=== PATIENT | male | born 1965 | race Caucasian/White ===

== ENCOUNTER → 2017-08-11 | Outpatient (CLI) | payer BC ==
--- NOTE | 2017-08-11 16:02 | Diagnostic Imaging Report ---
EXAMINATION: Magnetic resonance imaging of the right knee without intravenous contrast DATE: August 11, 2017. COMPARISON: None. INDICATION: 52-year-old male, right knee pain. History of chondromalacia patella. TECHNIQUE: Multiplanar, multisequence non contrast enhanced MR imaging was accomplished. FINDINGS: MENISCI: There is an oblique tear involving the anterior horn, body, posterior horn, and posterior root attachment of the medial meniscus with approximately 4 mm medial meniscal extrusion. There is a longitudinal horizontal tear involving the anterior horn and body of the lateral meniscus. LIGAMENTS AND TENDONS: The anterior and posterior cruciate ligaments are intact. The medial collateral ligament is intact. The iliotibial band, mid third lateral capsular ligament, fibular collateral ligament, biceps femoris tendon and conjoined tendon are intact. The quadriceps tendon and patella ligament are intact. JOINT: There are multiple fissures of the cartilage of the median patellar ridge and medial patellar facet which appear full thickness or very near full thickness. There is approximately 25% thinning of the cartilage of the median patellar ridge and medial patellar facet. There is a full-thickness cartilage fissure with flap morphology involving the central aspect of the femoral trochlear cartilage with cartilage flap measuring approximately 4 mm in transverse dimension as measured on axial T2 fat-saturation sequence image 11. There are additional areas of irregularity of the cartilage of the lateral femoral trochlea. The medial and lateral compartment cartilage demonstrates minimal irregularity. There is a trace knee joint effusion without intra-articular body or prominent synovitis. BONE: There is no acute fracture, bone contusion, or evidence of osteonecrosis. There is a benign subchondral cyst in the lateral tibial plateau with adjacent edema-like signal which is likely degenerative related or mechanically related. This is near the tibial attachment site at the anterior cruciate ligament. There is no acute fracture. There is no evidence of osteonecrosis. BURSAE AND SOFT TISSUES: There is no Boyer's cyst. There is nonspecific mild medial subcutaneous edema. IMPRESSION: 1. Oblique tear involving the entire medial meniscus with 4 mm medial meniscal extrusion. 2. Longitudinal horizontal-type tear involving the anterior horn and body of the lateral meniscus. 3. Intact anterior and posterior cruciate ligaments. 4. 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 No knee joint effusion, prominent synovitis, or intra-articular body. 5. No acute fracture, bone contusion, or evidence of osteonecrosis. Dictated by: Dictated on workstation # [id number]
== END ==
LOC: RAD 13:05
PROVIDERS: ATTEND Orthopaedic Surgery
DX: S83.241A Other tear of medial meniscus, current injury, right knee, initial encounter (principal); S83.281A Other tear of lateral meniscus, current injury, right knee, initial encounter; M17.11 Unilateral primary osteoarthritis, right knee; M22.41 Chondromalacia patellae, right knee
CPT/HCPCS: 73721

== ENCOUNTER → 2019-12-31 | Outpatient (CLI) | payer BC ==
[~2019-12-31] VITALS: Ht 170 cm; Wt 98.0 kg
[~2019-12-31] MED LIST: CATHETER FLUSH 10 ML SYR IV PRN
[2019-12-31 09:12] VITALS: BP 135/89
--- NOTE | 2020-01-03 19:28 | STRESS TEST ---
DATE OF SERVICE: 12/31/2019 RESTING AND POST EXERCISE TECHNETIUM-99M TETROFOSMIN SPECT CT IMAGING PRIMARY PHYSICIAN: Dr. Escalante. CLINICAL DIAGNOSIS: Shortness of breath, hypertension, hyperlipidemia. Baseline images were carried out after injection of 10.71 mCi of technetium-99m Tetrofosmin. Subsequently, exercise was carried out on a treadmill. Carlos protocol was employed. After the patient had attained 85% of maximum predicted heart rate, 31.1 mCi of technetium-99m Tetrofosmin were injected and the exercise was continued for another minute. The test was stopped on account of fatigue. There did not appear to be significant ST segment deviation with exercise. Heart rate response to exercise was normal. Blood pressure response to exercise was somewhat hypertensive. Review of images at rest and following stress does not indicate significant perfusion defects consistent with significant myocardial ischemia or infarction. Gated images show well preserved global left ventricular systolic function and the left ventricular ejection fraction is calculated to be 62%. Left ventricular end diastolic volume is 126 mL. TID is absent (0.92). CONCLUSIONS: 1. No evidence of significant myocardial ischemia or infarction on this study. 2. Well preserved global left ventricular systolic function without any distinctive regional wall motion abnormality with left ventricular ejection fraction of 62%. 3. Moderate cardiomegaly is suggested on this study. Job ID: [id number] DocumentID: [id number] Dictated Date: 01/03/2020 12:55:27 Tree Tapping Laborer Date: 01/03/2020 19:27:24 Dictated By: GERTRUDIS ESCALANTE MD, MA, FACP, FACC,
== END ==
LOC: CARD 08:00
PROVIDERS: ATTEND Internal Medicine Cardiovascular Disease
DX: I10 Essential (primary) hypertension (principal); E78.5 Hyperlipidemia, unspecified; R01.1 Cardiac murmur, unspecified; R06.02 Shortness of breath
CPT/HCPCS: 78452; 93017; A9502

== ENCOUNTER → 2020-01-03 | Outpatient (CLI) | payer BC | LOC: CARD 14:49 | PROVIDERS: ATTEND Internal Medicine Cardiovascular Disease | DX: I10 Essential (primary) hypertension (principal); I34.0 Nonrheumatic mitral (valve) insufficiency; I51.7 Cardiomegaly; E78.49 Other hyperlipidemia | CPT/HCPCS: 93306 ==

== ENCOUNTER 2020-12-06 18:11 | Emergency (ER) | payer BC ==
[~2020-12-06] VITALS: Ht 170.2 cm; Wt 96.6 kg
--- OUTSIDE RECORDS SUMMARY | 2020-12-06 18:17 | XMS REPORT | CCD ---
Author Author Ivan Wong Organization Adore Todd MD, [facility] Address [address] [place] [address] Phone Care Team Providers Care Home Care Music Therapist Name Role Phone Adore Todd PP Unavailable CCM Unavailable Summary Purpose Interface Exchange Insurance Providers Payer name Policy type / Coverage type Covered republican ID Effective Begin Date Effective End Date [facility] Commercial Insurance [id number] Unknown Unknown Family history Father Diagnosis Age At Onset Hypertension Unknown Mother Diagnosis Age At Onset No Known Diseases N/A Social History Social History Element Codes Description Effective Dates Marital status Unknown Kimberlee 10/26/2019 Number of children Unknown 2 10/26/2019 Employment Unknown Currently employed Professor at [employer] 10/26/[address]: 168134814 Currently uses smokeless to bacco 10/26/[address]: 502941 Currently drinks alcohol 10/25 Frequency of drinks SNOMED CT: 636901261 10 drinks per week 10/02 Allergies, Adverse Reactions, Alerts Substance Reaction Codes Entered Date Inactivated Date Status * NO KNOWN DRUG ALLERGIES Unknown 10/26/2019 No Inactiv e Date Active Problems Condition Codes Effective Dates Condition Status Prostate cancer screening ICD-10: Z12.5 ICD-9: V76.44 10/26/2019 Active Well adult exam ICD-10: Z00.00 ICD-9: V70.0 10/26/2019 Active Hypertension Unknown 10/26/2019 Active Essential (primary) hypertension ICD-10: I10 ICD-9: 401.9 10/26/2019 Active Heart murmur ICD-10: r01.1 ICD-9: 785.2 10/26/2019 Active Medications Medication Codes Instructions Start Date Stop Date Status Fill Instructions losartan 50 mg tablet RxNorm: 959320 1 Tablet(s) Oral two times a day 11/13/2020 11/07/2021 Active losartan 50 mg tablet RxNorm: 837384 1 Tablet(s) Oral two times a day 11/10/2019 11/04/2020 Inactive losartan 50 mg tablet RxNorm: 141539 1 Tablet(s) Oral two times a day 10/26/2019 11/09/2019 Inactive Medication Administered No Medication Administered data Immunizations No Immunization data Results Observation Observation Code Item Item Code Result Date S ervice Location Ref Lab Testing [id number] Ref Specimens enriquez ve been submitted to [facility] for analysis in accordance with the patient's insurance policy. If you do not receive results in a timely manner, please contact [facility] directly at [phone]. 10/28/2019 Unknown Procedures No Procedures data Vital Signs Date Vital 11/13/2020 Blood Pressure 1: 132/76 Code: 8480-6 BMI: 34.5 Code: 08181-7 Heart Rate 1: 70 bpm Height: 5'7" Code: 8302-2 SpO2: 96% Temperature: 3 6.0 (C) / 96.8 (F) Weight: 220 lbs Code: 57256-8 10/26/2019 Blood Pressure 1: 142/84 Code: 8480-6 BMI: 34.5 Code: 24476-9 Heart Rate 1: 68 bpm Height: 5'7" Code: 8302-2 SpO2: 97% Temperature: 3 6.9 (C) / 98.4 (F) Weight: 220 lbs Code: 65236-5 Functional Status No Functional Status data Reason For Visit Reason For Visit Effective Dates Notes well man exam (40-65 years) 11/13/2020 hypertension 10/26/2019 Encounters Encounter Performer Location Codes Date (78701) PREV VISIT EST AGE 40-64 Diagnosis: Well adult exam[ICD10: Z00.00] Diagnosis: Prostate cancer screening[ICD10: Z12.5] [facility] CPT-4: 53503 11/13/2020 OFFICE VISIT, NEW - LEVEL 3 Diagnosis: Essential (primary) hypertension[ICD10: I10] Diagnosis: Heart murmur[ICD10: r01.1] Diagnosis: Well adult exam[ICD10: Z00.00] Diagnosis: Prostate cancer screening[ICD10: Z12.5] [facility] CPT-4: 68757 10/26/2019 Plan of Care Planned Activity Notes Codes Status Date Visit Plan: Well Adult - pt was counsele d about diet, exercise, and encouraged to follow a heart healthy diet and increase activity level. The patient was instructed to RTC yearly for well adult exams and PRN for acute illnesses. The pt was also instructed to have yearly labs for check of cholesterol, thyroid, chem panel, CBC, and renal functioning. Hypertension - well controlled - continue with current medications, continue with no added salt diet. Pt has been encouraged to exercise daily. The pt has been advised to call the office if there are any acute concerns about change in blood pressure readings at home. 11/13/2020 Patient Education: Patient Medication Summary Completed 11/13/2020 Care Plan: Cbc With Differential Pending 11/13/2020 Care Plan: Comp Metabolic Pending Care Plan: Lipid Pending 11/13/2020 Care Plan: Tsh Pending 11/13/2020 Care Plan: Total Psa Pending 021 Visit Plan: Hypertension - well controll ed - continue with current medications, continue with no added salt diet. Pt has been encouraged to exercise daily. The pt has been advised to call the office if there are any acute concerns about change in blood pressure readings at home. Heart murmur- schedule echocardiogram Fasting labs 10/26/2019 Patient Education: Patient Medication Summary Completed 10/26/2019 Patient Education: Hypertension Completed 10/26/2019 Care Plan: Cbc With Differential Pending 10/26/2019 Care Plan: Comp Metabolic Pending Care Plan: Tsh Pending 10/26/2019 Care Plan: Total Psa Pending 020 Care Plan: Lipid Pending 10/26/2019 Instructions Comment . Well Adult - pt was counseled about di et, exercise, and encouraged to follow a heart healthy diet and increase activity level. The patient was instructed to RTC yearly for well adult exams and PRN for acute illnesses. The pt was also instructed to have yearly labs for check of cholesterol, thyroid, chem panel, CBC, and renal functioning. Hypertension - well controlled - continue with current medications, continue with no added salt diet. Pt has been encouraged to exercise daily. The pt has been advised to call the office if there are any acute concerns about change in blood pressure readings at home. . Hypertension - well controlled - melina nue with current medications, continue with no added salt diet. Pt has been encouraged to exercise daily. The pt has been advised to call the office if there are any acute concerns about change in blood pressure readings at home. Heart murmur- schedule echocardiogram Fasting labs Medical Equipment No Medical Equipment data Health Concerns Section Health Concerns data not found Goals Section Goals data not found Interventions Section Interventions data not found Health Status Evaluations/Outcomes Section Health Status Evaluations/Outcomes data not found Advance Directives No Advance Directive data
--- OUTSIDE RECORDS SUMMARY | 2020-12-06 18:17 | XMS REPORT | CCD ---
Author Author Ivan Wong Organization Adore Todd MD, [facility] Address [address] [place] [address] Phone Care Team Providers Care Quality Manager Name Role Phone [facility] PP Unavailable CCM Unavailable Summary Purpose Interface Exchange Insurance Providers Payer name Policy type / Coverage type Covered republican ID Effective Begin Date Effective End Date [facility] Commercial Insurance [id number] Unknown Unknown Family history Father Diagnosis Age At Onset Hypertension Unknown Mother Diagnosis Age At Onset No Known Diseases N/A Social History Social History Element Codes Description Effective Dates Marital status Unknown Kimberlee 10/26/2019 Number of children Unknown 2 10/26/2019 Employment Unknown Currently employed Professor at [employer] 10/26/[address]: 205193245 Currently uses smokeless to bacco 10/26/[address]: 657385 Currently drinks alcohol 10/25 Frequency of drinks SNOMED CT: 120608115 10 drinks per week 10/02 Allergies, Adverse [...] Fill Instructions losartan 50 mg tablet RxNorm: 835650 1 Tablet(s) Oral two times a day 11/13/2020 11/07/2021 Active losartan 50 mg tablet RxNorm: 669204 1 Tablet(s) Oral two times a day 11/10/2019 11/04/2020 Inactive losartan 50 mg tablet RxNorm: 559781 1 Tablet(s) Oral two times a day 10/26/2019 11/09/2019 Inactive Medication Administered No Medication Administered data Immunizations No Immunization data Results Observation Observation Code Item Item Code Result Date S ervice Location Ref Lab Testing [id number] Ref Specimens enriquez ve been submitted to [facility] for analysis in accordance with the patient's insurance policy. If you do not receive results in a timely manner, please contact [facility] directly at [phone]. 10/28/2019 Unknown Procedures No Procedures data Vital Signs Date Vital 11/13/2020 Blood Pressure 1: 132/76 Code: 8480-6 BMI: 34.5 Code: 27673-0 Heart Rate 1: 70 bpm Height: 5'7" Code: 8302-2 SpO2: 96% Temperature: 3 6.0 (C) / 96.8 (F) Weight: 220 lbs Code: 99958-8 10/26/2019 Blood Pressure 1: 142/84 Code: 8480-6 BMI: 34.5 Code: 28774-3 Heart Rate 1: 68 bpm Height: 5'7" Code: 8302-2 SpO2: 97% Temperature: 3 6.9 (C) / 98.4 (F) Weight: 220 lbs Code: 27829-1 Functional Status No Functional Status data Reason For Visit Reason For Visit Effective Dates Notes well man exam (40-65 years) 11/13/2020 hypertension 10/26/2019 Encounters Encounter Performer Location Codes Date (69001) PREV VISIT EST AGE 40-64 Diagnosis: Well adult exam[ICD10: Z00.00] Diagnosis: Prostate cancer screening[ICD10: Z12.5] [facility] CPT-4: 95029 11/13/2020 OFFICE VISIT, NEW - LEVEL 3 Diagnosis: Essential (primary) hypertension[ICD10: I10] Diagnosis: Heart murmur[ICD10: r01.1] Diagnosis: Well adult exam[ICD10: Z00.00] Diagnosis: Prostate cancer screening[ICD10: Z12.5] [facility] CPT-4: 86286 10/26/2019 Plan of Care Planned Activity Notes [...] in blood pressure readings at home. 11/13/2020 Appointment: [facility] Wong WPtel: [phone] (15 min) Moderate 11/13/2020 Patient Education: Patient Medication Summary Completed [...]
[2020-12-06] MEDS ORDERED: L.E.T. SOLUTION 3 ML SYR ONE (18:43)
[2020-12-06] MEDS ORDERED: L.E.T. SOLUTION 3 ML SYR TOP ONE (18:45)
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
[2020-12-06] MEDS ORDERED: LIDOCAINE 1% INJ 20 ML 20 ML VIAL ONE (19:21)
[2020-12-06] MEDS ORDERED: LIDOCAINE 1% INJ 20 ML 20 ML VIAL INJ ONE (19:30)
[2020-12-06] MEDS ORDERED: TETANUS,DIPTH,PERTUSS P/F (BOOSTRIX) 0.5 ML VIAL IM ONE (19:45)
[2020-12-06 20:29] VITALS: BP 142/75
== END 2020-12-06 20:29 | disposition home or self-care (01) ==
LOC: EDUNIT# 18:11 → ER 18:13
DX: S61.216A Laceration without foreign body of right little finger without damage to nail, initial encounter (principal); F17.290 Nicotine dependence, other tobacco product, uncomplicated; Z23 Encounter for immunization; W25.XXXA Contact with sharp glass, initial encounter
CPT/HCPCS: 90715; 99281

== ENCOUNTER 2020-12-16 13:55 | Emergency (ER) | payer BC ==
[~2020-12-16] VITALS: Ht 170.2 cm; Wt 96.6 kg
[2020-12-16 13:58] VITALS: BP 141/95
== END 2020-12-16 14:18 | disposition home or self-care (01) ==
LOC: EDUNIT# 13:55 → ER 13:56
DX: Z48.02 Encounter for removal of sutures (principal)

== ENCOUNTER → 2022-01-21 | Outpatient (CLI) | payer BC | LOC: CARD 13:46 | PROVIDERS: ATTEND Internal Medicine Cardiovascular Disease | DX: I34.0 Nonrheumatic mitral (valve) insufficiency (principal); I51.7 Cardiomegaly | CPT/HCPCS: 93306 ==